=== PATIENT | female | born 1990 | race Caucasian/White ===

== ENCOUNTER 2017-07-02 22:07 | Emergency (ER) | payer MEDICAID ==
[2017-07-02 22:14] VITALS: BMI 24.0
--- NOTE | 2017-07-02 22:22 | ED PDOC ---
HPI: General Adult Time Seen by Provider: 07/02/17 22:20 Chief Complaint (Nursing): Abdominal Pain Chief Complaint (Provider): abd pain, breast tenderness History Per: Patient Additional Complaint(s): 26 year old female with no past medical history presents to ED with abdominal pain and breast tenderness for 1 week. Patient states last week she took a test at home and it was positive. Patient denies any nausea or vomiting. Denies any fever or chills. LMP was May 24, patient has not had period in June as of yet. Past Medical History Reviewed: Historical Data, Nursing Documentation, Vital Signs Vital Signs: Last Vital Signs Temp 99.1 F 07/02/17 22:14 Pulse 81 07/02/17 22:14 Resp 16 07/02/17 22:14 BP 107/64 07/02/17 22:14 Pulse Ox 100 07/02/17 22:47 - Medical History PMH: No Chronic Diseases - Surgical History Surgical History: Endoscopy - Family History Family History: States: No Known Family Hx - Living Arrangements Living Arrangements: With Family - Social History Current smoker - smoking cessation education provided: No Alcohol: None Drugs: Denies - Home Medications Home Medications: Ambulatory Orders Medication Instructions Recorded Multivitamin 1 tab PO DAILY 05/29/14 oxyCODONE/Acetaminophen [Percocet 1 tab PO Q6H PRN #20 tab 08/28/14 5/325 mg Tab] Azithromycin [Zithromax Z-Julio C] 250 mg PO DAILY 5 Days tab 11/13/15 Ibuprofen [Motrin] 600 mg PO TID 7 Days tab 11/13/15 Oseltamivir Phosphate [Tamiflu] 75 mg PO BID 5 Days capsule 11/13/15 - Allergies Allergies/Adverse Reactions: Allergies Allergy/AdvReac Type Severity Reaction Status Date / Time shrimp Allergy ANAPHYLAXIS Verified 07/02/17 22:13 Review of Systems ROS Statement: Except As Marked, All Systems Reviewed And Found Negative Constitutional: Negative for: Fever Cardiovascular: Negative for: Chest Pain Respiratory: Negative for: Cough Gastrointestinal: Positive for: Abdominal Pain (cramping). Negative for: Nausea , Vomiting, Diarrhea Genitourinary Female: Negative for: Dysuria, Vaginal Discharge, Vaginal Bleeding Physical Exam - Reviewed Nursing Documentation Reviewed: Yes Vital Signs Reviewed: Yes - Physical Exam Appears: Positive for: Well, Non-toxic, No Acute Distress Skin: Negative for: Rash Eye Exam: Positive for: Normal appearance Cardiovascular/Chest: Positive for: Regular Rate, Rhythm Respiratory: Positive for: Normal Breath Sounds Gastrointestinal/Abdominal: Positive for: Soft. Negative for: Tenderness, Distended, Guarding, Rebound Back: Negative for: L CVA Tenderness, R CVA Tenderness Extremity: Negative for: Pedal Edema Neurologic/Psych: Positive for: Alert, Oriented - Laboratory Results Result Diagrams: 07/02/17 22:45 07/02/17 22:45 Urine POC: Positive Urine dip results: Negative for: Leukocyte Esterase, Blood, Nitrate, Ketones, Glucose, Bilirubin, Protein - ECG O2 Sat by Pulse Oximetry: 100 Pulse Ox Interpretation: Normal - Other Rad OB US X-Ray: Read By Radiologist X-Ray Interpretation: see below Medical Decision Making Medical Decision Makin26 year old female with breast and abominal pain test in ED is positive. Plan: CBC CMP Beta quant OB US Urine dip US: COMPARISON: No relevant prior studies available. FINDINGS: Gestation: Uterus measures 8.6 x 4.5 x 6.6 CM. Intrauterine . Gestational sac is visualized. Yolk sac is visualized. No pole is identified at this point. Uterus/cervix: Cervical os is closed. No myometrial mass. Ovaries: Right ovary measures 3.7 x 1.9 x 3.1 CM. Left ovary measures 2.7 x 1.7 x 2.4 CM. No mass. Free fluid: No free fluid. IMPRESSION: Ultrasound findings most consistent with early intrauterine . Clinical followup, serial beta hCG levels, and repeat imaging if appropriate. Patient is aware of diagnostic testing results. She was referred to women's clinic for follow up. Patient is aware she can RTED at any time if acutely worse. Disposition - Clinical Impression Clinical Impression: Abdominal pain during - Patient ED Disposition Is Patient to be Admitted: No Counseled Patient/Family Regarding: Studies Performed, Diagnosis, Need For Followup - Disposition [facility] Disposition: Routine/Home Disposition Time: 00:24 Condition: STABLE Additional Instructions: Follow up with women's clinic. Instructions: Abdominal Pain in (ED) Forms: [employer] (Israeli) Results - Lab Results Lab Results: 07/02/17 07/02/17 22:45 22:45 WBC 7.4 RBC 3.73 L Hgb 10.9 L Hct 33.1 L MCV 88.7 MCH 29.3 MCHC 33.0 RDW 13.4 Plt Count 282 MPV 7.2 Neut % (Auto) 55.9 Lymph % (Auto) 29.8 [facility] [facility] % (Auto) 10.5 H Eos % (Auto) 3.2 Baso % (Auto) 0.6 Neut # 4.1 Lymph # 2.2 [facility] # 0.8 Eos # 0.2 Baso # 0.0 Sodium 140 Potassium 3.7 Chloride 106 Carbon Dioxide 22 Anion Gap 16 BUN 10 Creatinine 0.6 L Est GFR ( Amer) > 60 Est GFR (Non-Af Amer) > 60 Random Glucose 87 Calcium 8.2 L Total Bilirubin < 0.1 L AST 25 ALT 26 Alkaline Phosphatase 56 Total Protein 6.9 Albumin 3.9 Globulin 3.0 Albumin/Globulin Ratio 1.3 Beta HCG, Quant 8534.10
[2017-07-02 23:06] LABS: BASO % 0.6 % (0.0-2.0); EOS # 0.2 K/uL (0.0-0.7); EOS % 3.2 % (0.0-4.0); HEMATOCRIT 33.1 % (34.0-47.0); LYMPH # 2.2 K/uL (1.0-4.3); LYMPH % 29.8 % (20.0-40.0); MEAN CELL VOLUME 88.7 fl (81.0-99.0); MEAN CORPUSCULAR HEMOGLOBIN 29.3 pg (27.0-31.0); MEAN PLATELET VOLUME 7.2 fl (7.2-11.7); MONO # 0.8 K/uL (0.0-0.8); MONO % 10.5 % (0.0-10.0); NEUT # 4.1 K/uL (1.8-7.0); NEUT % 55.9 % (50.0-75.0); NRBC % 0.2 % (0.0-0.0); RED CELL DISTRIBUTION WIDTH 13.4 % (11.5-14.5); WHITE BLOOD COUNT 7.4 K/uL (4.8-10.8)
[2017-07-02 23:16] LABS: ALB/GLOB RATIO 1.3 (1.0-2.1); ALKALINE PHOSPHATASE 56 U/L (38-126); ALT/SGPT 26 U/L (9-52); AST/SGOT 25 U/L (14-36); BILIRUBIN,TOTAL < 0.1 mg/dl (0.2-1.3); BLOOD UREA NITROGEN 10 mg/dl (7-17); CALCIUM 8.2 mg/dL (8.4-10.2); CARBON DIOXIDE 22 mmol/L (22-30); CHLORIDE 106 mmol/L (98-107); GFR AFRICAN-AMERICAN > 60; GLUCOSE,RANDOM 87 mg/dL (65-105); POTASSIUM 3.7 MMOL/L (3.6-5.0); SODIUM 140 mmol/l (132-148); TOTAL PROTEIN 6.9 G/DL (6.3-8.2)
--- NOTE | 2017-07-03 00:07 | US ---
EXAM: US , Transvaginal CLINICAL HISTORY: 26 years old, female; Pain; Other: Abd pain; Gestational age or lmp: 05/24/17; ; Additional info: with abd pain TECHNIQUE: Real-time transvaginal obstetrical ultrasound of the maternal pelvis and a first trimester with image documentation. Transvaginal imaging was used for better evaluation of the fetus and adnexa. COMPARISON: No relevant prior studies available. FINDINGS: Gestation: Uterus measures 8.6 x 4.5 x 6.6 CM. Intrauterine . Gestational sac is visualized. Yolk sac is visualized. No pole is identified at this point. Uterus/cervix: Cervical os is closed. No myometrial mass. Ovaries: Right ovary measures 3.7 x 1.9 x 3.1 CM. Left ovary measures 2.7 x 1.7 x 2.4 CM. No mass. Free fluid: No free fluid. IMPRESSION: Ultrasound findings most consistent with early intrauterine . Clinical followup, serial beta hCG levels, and repeat imaging if appropriate.
[2017-07-03 00:39] VITALS: BP 116/65; PULSE 74; RESP 14; TEMP 98
[2017-07-03 00:41] VITALS: O2SAT 100
== END 2017-07-03 00:39 | disposition home or self-care (01) ==
LOC: H.ER 22:07
DX: O26.899 Other specified pregnancy related conditions, unspecified trimester (principal); N64.4 Mastodynia

== ENCOUNTER 2017-12-16 08:43 | Emergency (ER) | payer MEDICAID, OTHER ==
[2017-12-16 08:47] VITALS: BMI 24.0
--- NOTE | 2017-12-16 09:07 | ED PDOC ---
HPI: General Adult Time Seen by Provider: 12/16/17 09:03 Chief Complaint (Nursing): Flu-like Symptoms History Per: Patient Onset/Duration Of Symptoms: Days (2) Current Symptoms Are (Timing): Still Present Severity: Mild Additional Complaint(s): Fever, bodyaches and nonproduvtive cough x 2 days. Denies vomiting, diarrhea vaginal bleeding. No dysuria. Pt approx 29 weeks Past Medical History Vital Signs: Last Vital Signs Temp 98 F 12/16/17 08:51 Pulse 104 H 12/16/17 08:51 Resp 18 12/16/17 08:51 BP 100/65 12/16/17 08:51 Pulse Ox 98 12/16/17 09:07 - Medical History PMH: Asthma ( A CHILD) Denies: Chronic Kidney Disease - Surgical History Surgical History: Endoscopy - Family History Family History: States: Unknown Family Hx - Home Medications Home Medications: Ambulatory Orders Medication Instructions Recorded Multivitamin 1 tab PO DAILY 05/29/14 oxyCODONE/Acetaminophen [Percocet 1 tab PO Q6H PRN #20 tab 08/28/14 5/325 mg Tab] Azithromycin [Zithromax Z-Julio C] 250 mg PO DAILY 5 Days tab 11/13/15 Ibuprofen [Motrin] 600 mg PO TID 7 Days tab 11/13/15 Oseltamivir Phosphate [Tamiflu] 75 mg PO BID 5 Days capsule 11/13/15 Oseltamivir [Tamiflu] 75 mg PO BID #10 cap 12/16/17 - Allergies Allergies/Adverse Reactions: Allergies Allergy/AdvReac Type Severity Reaction Status Date / Time shrimp Allergy ANAPHYLAXIS Verified 12/16/17 08:50 Review of Systems Constitutional: Positive for: Fever, Malaise Respiratory: Positive for: Cough Gastrointestinal: Negative for: Vomiting, Abdominal Pain, Diarrhea Genitourinary Female: Negative for: Dysuria, Frequency, Vaginal Discharge, Vaginal Bleeding Physical Exam - Physical Exam Appears: Positive for: Non-toxic, No Acute Distress Skin: Positive for: Normal Color, Warm, DRY ENT: Positive for: Normal ENT Inspection Cardiovascular/Chest: Positive for: Regular Rate, Rhythm Respiratory: Positive for: CNT, Normal Breath Sounds Gastrointestinal/Abdominal: Positive for: Bowel Sounds, Soft. Negative for: Tenderness - ECG O2 Sat by Pulse Oximetry: 98 Disposition - Clinical Impression Clinical Impression: Influenza-like symptoms, Influenza - Patient ED Disposition Is Patient to be Admitted: No Counseled Patient/Family Regarding: Studies Performed, Diagnosis, Need For Followup, Rx Given - Disposition Referrals: [facility] [Outside] Disposition: Routine/Home Disposition Time: 09:28 Condition: FAIR Prescriptions: Oseltamivir [Tamiflu] 75 mg PO BID #10 cap Instructions: Flu, Adult (DC) Forms: [employer] (Lao)
[2017-12-16 12:36] VITALS: BP 105/65; PULSE 89; RESP 18; TEMP 98; O2SAT 98
== END 2017-12-16 11:00 | disposition home or self-care (01) ==
LOC: H.ER 08:43
DX: J11.1 Influenza due to unidentified influenza virus with other respiratory manifestations (principal); O99.513 Diseases of the respiratory system complicating pregnancy, third trimester; Z3A.29 29 weeks gestation of pregnancy

== ENCOUNTER 2018-02-16 11:59 | Inpatient (IN) | payer OTHER ==
[2018-02-16 14:29] VITALS: BMI 33.7
[2018-02-16] MEDS ORDERED: Lactated Ringer's 1,000 ML IV SCH (14:30)
[2018-02-16] MEDS ORDERED: Oxytocin 30 units/LR 500ML 30 U/500 ML BAG IV SCH (14:30)
--- NOTE | 2018-02-16 14:41 | OBHP ---
Datetime: 02/16/2018 12:48 IP Adm Impression: Term, intrauterine Admit Comment, IP Provider: 27 yo , IUP at 38+ weeks presented to [facility] at direction of her pr enatal provider, after BPP was read as 4/8 from this am. Pt states she has felt decreased movem ent for the past 5 days, but waited until her appointment today. ROS: denies headache, dizziness, chest pain, dyspnea, GI discomfort. PNC: Dr. Leobardo Sánchez; states has been unremarkable so far. GBS neg OBhx: 2 prior NVD at 38-39 weeks (2011, 2013); no hx abnormal pap smears Past med hx: none Past surg hx: bariatric sleeve, 2013 Soc hx: denies tobacco alcohol drug use Allergies: nkda Meds: pnv, iron Review of systems patient denies headache chest pain shortness of breath palpitations nausea vomit ing diarrhea vaginal bleeding, leakage of fluid musculoskeletal or neurological complaints Vital signs stable afebrile Physical exam see notes Intrauterine at 38 weeks Decrease movement and biophysical 6 of 8 MFM recommends delivery Vertex presentation, adequate pelvis, estimated weight 7 pounds heart rate tracing reactive no decelerations Artificial rupture of membranes Anticipate normal vaginal delivery Pelvic Type - PN: Adequate Extremities - PN: Normal Abdomen - PN: Normal Back - PN: Normal Breast - PN: Not Done Lungs - PN: Normal Heart - PN: Normal Thyroid - PN: Normal Neurologic - PN: Normal HEENT - PN: Normal General - PN: Normal Pool Provider: Negative Vital Signs Provider: Reviewed IP Chief Complaint: Decreased movement Dilatation, Provider: 5 Effacement, Provider: 90 Station, Provider: -2 Genitourinary Exam: Normal DTRs - PN: Normal
[2018-02-16 15:05] LABS: BASO % 0.6 % (0.0-2.0); EOS # 0.1 K/uL (0.0-0.7); EOS % 2.1 % (0.0-4.0); HEMOGLOBIN 10.4 g/dL (12.0-16.0); LYMPH # 1.9 K/uL (1.0-4.3); LYMPH % 33.7 % (20.0-40.0); MEAN CELL VOLUME 87.3 fl (81.0-99.0); MEAN CORPUSCULAR HEMOGLOBIN 29.4 pg (27.0-31.0); MEAN CORPUSCULAR HGB CONC 33.6 g/dL (33.0-37.0); MEAN PLATELET VOLUME 7.8 fl (7.2-11.7); MONO # 0.5 K/uL (0.0-0.8); MONO % 9.5 % (0.0-10.0); NEUT % 54.1 % (50.0-75.0); NRBC % 0.2 % (0.0-0.0); RBC 3.53 Mil/uL (3.80-5.20); RED CELL DISTRIBUTION WIDTH 15.8 % (11.5-14.5); WHITE BLOOD COUNT 5.5 K/uL (4.8-10.8)
[2018-02-16] MEDS: Lactated Ringer's 1,000 ML IV SCH ×2 (15:23→16:10)
[2018-02-16] MEDS ORDERED: Fentanyl/Bupivacaine HCl 250 ML EPI ONE (15:35)
[2018-02-16] MEDS ORDERED: Bupivacaine HCl 0.25% PF (10 ml) Inj ONE (15:36)
--- NOTE | 2018-02-16 17:27 | OBDS ---
DELIVERY PERSONNEL Delivery Doctor: Claire Huggins MD Anesthesiologist: Apoorva Levy MD MATERNAL INFORMATION Delivery Anesthesia: Epidural Medications in Delivery: Pitocin 30 units Estimated Blood Loss (ml): 100 Placenta Cultured: Yes Maternal Complications: None Provider Comments: Delivered live baby girl at 5:07 PM the baby was bulb suctioned on the perineum a nd transferred to the maternal chest. The cord was clamped and cut 3 vessels noted cord blood was obt ained and sent to the lab. The placenta was delivered at 5:10 PM intact, there were no vast vaginal l acerations, estimated blood loss was 100 mL. The mother tolerated the procedure well the baby went to the well baby nursery with Apgars of 9 and 9 weighing 3210 g LABOR SUMMARY EDC: 02/28/2018 00:00 No. Babies in Womb: 1 Attempted: No Labor Anesthesia: Epidural LABOR INFORMATION Onset of Labor: 02/09/2018 14:00 Complete Dilatation: 02/09/2018 17:00 Group B Beta Strep: Negative Steroids Given: None Reason Steroids Not Administered: Not Applicable MEMBRANES Membranes Rupture Method: Artificial Rupture of Membranes: 02/09/2018 14:00 Length of Rupture (hrs): 3.12 Amniotic Fluid Color: Clear Amniotic Fluid Amount: Small Amniotic Fluid Odor: Normal STAGES OF LABOR Stage 1 hrs: 3 Stage 1 min: 0 Stage 2 hrs: 0 Stage 2 min: 7 Stage 3 hrs: 0 Stage 3 min: 3 Total Time in Labor hrs: 3 Total Time in Labor min: 10 VAGINAL DELIVERY Episiotomy: None Laceration Extension: N/A Laceration Type: None Initial Vag Sponge Count: 5 Final Vag Sponge Count: 5 Sponge Count Correct: Yes Sharps Count Correct: N/A BABY A INFORMATION Delivery Date/Time: 02/09/2018 17:07 Method of Delivery: Vaginal : N/A Forceps: N/A Vacuum Extraction: N/A Shoulder Dystocia : No SHOULDER DYSTOCIA BABY A Delivery Date/Time: 02/09/2018 17:07 PRESENTATION/POSITION BABY A Presentation: Cephalic Cephalic Presentation: Vertex PLACENTA INFORMATION BABY A Placenta Delivery Time : 02/09/2018 17:10 Placenta Method of Delivery: Spontaneous Placenta Status: Delivered INFORMATION BABY A Gestational Age at Delivery: 38.0 Gestational Status: Term Outcome : Liveborn Condition : Stable Sex: Female WEIGHT/LENGTH BABY A Infant Birthweight (gms): 3210 Weight (lb): 7 Weight (oz): 1 CORD INFORMATION BABY A No. Cord Vessels: 3 Nuchal Cord : N/A
[2018-02-16] MEDS ORDERED: Benzocaine/Menthol SPRAY TOP PRN (17:51)
[2018-02-16] MEDS ORDERED: Oxycodone/Acetaminophen 5/325 mg Tab PO PRN ×2 (17:51→20:09)
[2018-02-16] MEDS: Benzocaine/Menthol SPRAY TOP PRN (22:26)
[2018-02-17] MEDS ORDERED: Pneumococcal 23-Valent Vaccine IM ONE ×2 (06:23→09:00)
[2018-02-17 07:22] LABS: HEMOGLOBIN 9.9 g/dL (12.0-16.0); MEAN CELL VOLUME 87.8 fl (81.0-99.0); MEAN CORPUSCULAR HEMOGLOBIN 29.1 pg (27.0-31.0); MEAN CORPUSCULAR HGB CONC 33.2 g/dL (33.0-37.0); RBC 3.4 Mil/uL (3.80-5.20); RED CELL DISTRIBUTION WIDTH 15.7 % (11.5-14.5); WHITE BLOOD COUNT 7.8 K/uL (4.8-10.8)
[2018-02-17] MEDS: Multivitamin With Minerals Tab PO SCH (08:30)
[2018-02-17] MEDS ORDERED: Multivitamin With Minerals Tab PO SCH (09:00)
--- NOTE | 2018-02-18 08:30 | OBDCSUM ---
Datetime: 02/18/2018 08:28 Discharged to, Provider: Home Follow up at, Provider: [facility] Disch Instr Activity: Normal activity; May Shower Disch Instr Diet: Regular Discharge Instructions, Provider: Routine instructions given Discharge Diagnosis, Provider: Term Delivered Discharge Time: 02/18/2018 08:28 Follow up in weeks, Provider: 5 weeks Contraception discussed, Prov: No Disch Activity Restrictions: No exercising; No sexual activity; Nothing in vagina - [place], ashli bhatti
--- NOTE | 2018-02-18 08:30 | OBPPN ---
Datetime: 02/18/2018 08:21 PP Pain Prov: Within normal limits PP Abdomen/Uterus Prov: Normal PP Lochia Prov: Normal PP Extremities Prov: Normal PP Impression Prov: Normal progression PP Plan Prov: Discharge PP Progress Note Prov: PPD 2 s/p , doing well, breast feeding. Rx's motrin and ferrous sulfate given. Discharge home today. Vital Signs Provider PP: Reviewed
[2018-02-18] MEDS: Benzocaine/Menthol SPRAY TOP PRN (08:41)
[2018-02-18] MEDS: Multivitamin With Minerals Tab PO SCH (08:41)
[2018-02-18 20:21] VITALS: BP 107/51; PULSE 79; RESP 20; TEMP 98.6; O2SAT 99
== END 2018-02-18 14:02 | disposition home or self-care (01) | DRG 373 ==
LOC: H.EROB2 11:59 → H.L&D 12:00 → H.EROB2 14:33 → H.OB/GYN 19:50
PROVIDERS: ADMIT Obstetrics & Gynecology Gynecology; ATTEND Obstetrics & Gynecology Gynecology
PROC: 10E0XZZ Delivery of Products of Conception, External Approach (ICD-10-PCS; principal; 2018-02-16)
PROC: 4A1HXCZ Monitoring of Products of Conception, Cardiac Rate, External Approach (ICD-10-PCS; 2018-02-16)
DX: O36.8130 Decreased fetal movements, third trimester, not applicable or unspecified (principal); Z3A.38 38 weeks gestation of pregnancy; Z37.0 Single live birth

== ENCOUNTER 2018-02-20 09:26 | Emergency (ER) | payer OTHER ==
[2018-02-20 09:51] VITALS: BP 115/76; PULSE 75; O2SAT 100
[2018-02-20 09:52] VITALS: BMI 26.2
--- NOTE | 2018-02-20 10:18 | ED PDOC ---
HPI: General Adult Time Seen by Provider: 02/20/18 09:54 Chief Complaint (Nursing): Breast Problem Chief Complaint (Provider): Breast Problem History Per: Patient History/Exam Limitations: no limitations Onset/Duration Of Symptoms: Hrs Additional Complaint(s): 27 year old female presents to the ED complaining of bilateral breast swelling and tenderness. Patient reports she delivered child 4 days ago and is breast feeding. Child is taking from breasts bilaterally. Denies fever. PMD: None Provided Past Medical History Reviewed: Historical Data, Nursing Documentation, Vital Signs Vital Signs: Last Vital Signs Temp 98.7 F 02/20/18 10:17 Pulse 75 02/20/18 09:50 Resp BP 115/76 02/20/18 09:50 Pulse Ox 100 02/20/18 10:29 - Medical History PMH: Asthma ( A CHILD) Denies: Depression, Diabetes, HTN, Chronic Kidney Disease - Surgical History Surgical History: Endoscopy - Family History Family History: States: Unknown Family Hx - Immunization History Hx Tetanus Toxoid Vaccination: No Hx Influenza Vaccination: No Hx Pneumococcal Vaccination: No - Home Medications Home Medications: Ambulatory Orders Medication Instructions Recorded Multivitamin with Iron [Daily 1 tab PO DAILY MDD 1 02/16/18 Vitamin + Iron] Benzocaine/Menthol FCI [Dermoplast] 1 sprays TOP PRN PRN aero 02/18/18 Ferrous Sulfate 325 mg PO DAILY #60 tablet 02/18/18 Ibuprofen [Motrin Tab] 600 mg PO Q6 PRN #30 tab 02/18/18 Multimineral/Multivitamin 1 tab PO DAILY tab 02/18/18 [Therapeutic-M Tab] Non-Formulary 1 ea .ROUTE Q6 #1 ea 02/20/18 - Allergies Allergies/Adverse Reactions: Allergies Allergy/AdvReac Type Severity Reaction Status Date / Time shrimp Allergy ANAPHYLAXIS Verified 12/16/17 08:50 Review of Systems ROS Statement: Except As Marked, All Systems Reviewed And Found Negative Constitutional: Positive for: Other (Breast swelling and tenderness bilaterally) . Negative for: Fever Physical Exam - Reviewed Nursing Documentation Reviewed: Yes Vital Signs Reviewed: Yes - Physical Exam Appears: Positive for: Non-toxic, No Acute Distress Head Exam: Positive for: ATRAUMATIC, NORMOCEPHALIC Skin: Positive for: Normal Color, Warm, Dry Eye Exam: Positive for: Normal appearance, EOMI, PERRL ENT: Positive for: Normal ENT Inspection, Sinus Pain/Drainage Neck: Positive for: Normal, Painless ROM, Supple Cardiovascular/Chest: Positive for: Regular Rate, Rhythm, Other (Breasts engorged bilaterally. Able to express milk from nipples bilaterally. No erythema , no warmth, no masses). Negative for: Murmur Respiratory: Positive for: Normal Breath Sounds. Negative for: Respiratory Distress Gastrointestinal/Abdominal: Positive for: Normal Exam, Soft. Negative for: Tenderness Back: Positive for: Normal Inspection Extremity: Positive for: Normal ROM. Negative for: Pedal Edema, Deformity Neurologic/Psych: Positive for: Alert, Oriented. Negative for: Motor/Sensory Deficits - ECG O2 Sat by Pulse Oximetry: 100 (RA) Pulse Ox Interpretation: Normal Medical Decision Making Medical Decision Making: Scribe Attestation: Documented by Gricel Arciniega, acting as a scribe for Dr. Ricky Foster MD Provider Scribe Attestation: All medical record entries made by the Scribe were at my direction and personally dictated by me. I have reviewed the chart and agree that the record accurately reflects my personal performance of the history, physical exam, medical decision making, and the department course for this patient. I have also personally directed, reviewed, and agree with the discharge instructions and disposition. Disposition - Clinical Impression Clinical Impression: Breast engorgement, - Patient ED Disposition Is Patient to be Admitted: No Counseled Patient/Family Regarding: Diagnosis, Need For Followup, Rx Given - Disposition Referrals: [facility] [Outside] Disposition: Routine/Home Disposition Time: 10:30 Condition: FAIR Prescriptions: Non-Formulary 1 ea .ROUTE Q6 #1 ea Instructions: Common Problems Forms: [facility] (Divehi)
[2018-02-20 12:01] VITALS: TEMP 97.5
== END 2018-02-20 12:00 | disposition home or self-care (01) ==
LOC: H.ER 09:26
DX: O92.79 Other disorders of lactation (principal)